=== PATIENT | male | born 1975 ===

== ENCOUNTER 2021-06-10 06:06 | Day surgery (SDC) | payer OTHER ==
[2021-06-10] MEDS ORDERED: NEXIUM 24HR20 M1 PO (10:07)
== END 2021-06-10 11:15 | disposition home or self-care (01) ==
LOC: AMB-ENDOS 06:06
PROVIDERS: ATTEND Surgery
DX: D13.1 Benign neoplasm of stomach (principal); K44.9 Diaphragmatic hernia without obstruction or gangrene; Z20.822 Contact with and (suspected) exposure to COVID-19